=== PATIENT | female | born 1985 | race African-American/Black ===

== ENCOUNTER 2016-11-06 13:26 | Emergency (ER) | payer SELFPAY ==
[~2016-11-06] VITALS: Ht 149.9 cm; Wt 59.1 kg
[2016-11-06 13:27] VITALS: BP 129/96; PULSE 75; TEMP 100
[2016-11-06] MEDS ORDERED: PEN-VEE K500 MG PO (14:02)
[2016-11-06] MEDS ORDERED: NORCO 325 MG-51 TAB PO (14:02)
== END 2016-11-06 14:51 | disposition home or self-care (01) ==
LOC: COL.ER 13:26
DX: K02.9 Dental caries, unspecified (principal); J45.909 Unspecified asthma, uncomplicated; E11.9 Type 2 diabetes mellitus without complications; F17.210 Nicotine dependence, cigarettes, uncomplicated; Z79.84 Long term (current) use of oral hypoglycemic drugs

== ENCOUNTER 2017-03-29 13:23 | Emergency (ER) | payer SELFPAY ==
[~2017-03-29] VITALS: Ht 149.9 cm; Wt 55.9 kg
[~2017-03-29 13:23] MED LIST: NORCO 325 MG-51 TAB PO; PEN-VEE K500 MG PO
[2017-03-29 13:30] VITALS: BP 108/82; TEMP 98.5
[2017-03-29] MEDS ORDERED: PEN-VEE K500 MG PO (14:49)
[2017-03-29] MEDS ORDERED: NORCO 325 MG-51 TAB PO (14:49)
[2017-03-29 14:53] VITALS: PULSE 71
== END 2017-03-29 14:54 | disposition home or self-care (01) ==
LOC: COL.ER 13:23
DX: K02.9 Dental caries, unspecified (principal); R68.84 Jaw pain

== ENCOUNTER 2017-10-17 01:59 | Emergency (ER) | payer SELFPAY ==
[~2017-10-17] VITALS: Ht 149.9 cm; Wt 61.4 kg
[2017-10-17 01:59] VITALS: TEMP 97.3
[2017-10-17] MEDS ORDERED: ZYRTEC5 MG PO (02:04)
[2017-10-17 03:38] LABS: ALBUMIN 3.5 gm/dL (3.5-5.0); BILIRUBIN,TOTAL 0.4 mg/dL (0.0-1.0); CALCIUM 8.2 mg/dL (8.4-10.2); CREATININE, serum 0.86 mg/dL (0.52-1.25); TOTAL PROTEIN 7.2 gm/dL (6.4-8.2)
[2017-10-17 03:46] LABS: POTASSIUM 3.6 mmol/L (3.4-5.0)
[2017-10-17 05:26] LABS: BASO % 0.2 % (0.0-2.0); EOS # 0.1 (0.0-0.7); EOS % 0.5 % (0-4.0); GRAN # 8.5 (1.4-6.5); GRAN % 74.9 % (42.2-75.2); HEMOGLOBIN 11.6 g/dl (12.5-16.0); LYMPH # 2.4 (1.2-3.4); LYMPH % 21.3 % (20.0-51.0); MEAN CELL VOLUME 85 fl (80.0-100.0); MEAN CORPUSCULAR HEMOGLOBIN 29 pg (27.0-31.0); MEAN CORPUSCULAR HGB CONC 34 g/dl (33.0-37.0); MEAN PLATELET VOLUME 8.8 fl (7.4-10.4); MONO # 0.3 (0.1-0.6); MONO % 2.8 % (1.7-9.3); PLATELET COUNT 267 K/mm3 (130-400); RED BLOOD COUNT 3.96 M/mm3 (4.10-5.30); REDCELL DISTRIBUTION WIDTH-CV 12.8 % (11.5-14.5)
[2017-10-17 05:30] LABS: HEMATOCRIT 33.7 % (37.0-47.0)
[2017-10-17 05:31] VITALS: BP 102/73
[2017-10-17 05:39] LABS: CALCIUM 8.2 mg/dL (8.4-10.2); CREATININE, serum 0.76 mg/dL (0.52-1.25); POTASSIUM 4.1 mmol/L (3.4-5.0)
[2017-10-17 05:45] VITALS: PULSE 86
== END 2017-10-17 06:11 | disposition home or self-care (01) ==
LOC: COL.ER 01:59
PROVIDERS: Emergency Medicine
DX: F10.129 Alcohol abuse with intoxication, unspecified (principal); R55 Syncope and collapse; E11.9 Type 2 diabetes mellitus without complications; F17.210 Nicotine dependence, cigarettes, uncomplicated; Z90.721 Acquired absence of ovaries, unilateral; Y90.1 Blood alcohol level of 20-39 mg/100 ml
CPT/HCPCS: J7030

== ENCOUNTER 2018-01-21 03:51 | Inpatient (IN) | payer SELFPAY ==
[2018-01-21] VITALS (11 sets, daily range): BP systolic 95–131; BP diastolic 59–90; PULSE 86–118; TEMP 98.6–100.5; O2SAT 97–98
[~2018-01-21] VITALS: Ht 162.6 cm; Wt 65.0 kg
[~2018-01-21 03:51] MED LIST changes: +ZYRTEC5 MG PO
[2018-01-21 04:21] LABS: BASO % 0.2 % (0.0-2.0); EOS # 0.1 (0.0-0.7); EOS % 0.5 % (0-4.0); GRAN % 75.7 % (42.2-75.2); HEMOGLOBIN 11.5 g/dl (12.5-16.0); LYMPH # 2.9 (1.2-3.4); LYMPH % 19.8 % (20.0-51.0); MEAN CELL VOLUME 88 fl (80.0-100.0); MEAN CORPUSCULAR HEMOGLOBIN 29 pg (27.0-31.0); MEAN CORPUSCULAR HGB CONC 33 g/dl (33.0-37.0); MEAN PLATELET VOLUME 8.9 fl (7.4-10.4); MONO # 0.5 (0.1-0.6); MONO % 3.5 % (1.7-9.3); PLATELET COUNT 321 K/mm3 (130-400); RED BLOOD COUNT 3.93 M/mm3 (4.10-5.30); REDCELL DISTRIBUTION WIDTH-CV 13.3 % (11.5-14.5)
[2018-01-21 04:22] LABS: HEMATOCRIT 34.4 % (37.0-47.0)
[2018-01-21 04:30] LABS: ALANINE AMINOTRANSFERASE 27 U/L (9-52); ALKALINE PHOSPHATASE 60 U/L (50-136); ANION GAP 16 mmol/L (7-16); AST,SGOT 24 U/L (15-37); BILIRUBIN,TOTAL 0.7 mg/dL (0.0-1.0); BLOOD UREA NITROGEN 8 mg/dL (7-17); CARBON DIOXIDE 20 mmol/L (22-30); CHLORIDE 105 mmol/L (98-107); CREATININE, serum 0.86 mg/dL (0.52-1.25); GLUCOSE 134 mg/dL (74-106); SODIUM 141 mmol/L (137-145); TOTAL PROTEIN 7.1 gm/dL (6.4-8.2)
[2018-01-21 04:31] LABS: ACETAMINOPHEN < 10 ug/mL (10-30); ALCOHOL(ethanol),MEDICAL < 10 mg/dL; SALICYLATE < 1.0 mg/dL
[2018-01-21 04:32] LABS: POTASSIUM 2.8 mmol/L (3.4-5.0)
[2018-01-21 04:33] LABS: COLLECTION METHOD CATHETER
[2018-01-21 04:34] LABS: MAGNESIUM 2.1 mg/dL (1.6-2.3)
[2018-01-21 04:42] LABS: MUCOUS Present /lpf; PH 5 (5-8); SQUAMOUS EPITHELIAL 20-50 /hpf; URINE APPEARANCE Turbid; URINE BACTERIA Moderate /hpf; URINE BILIRUBIN Negative (NEGATIVE); URINE BLOOD Negative (NEGATIVE); URINE COLOR Yellow; URINE GLUCOSE Negative (NEGATIVE); URINE KETONE 1+ (NEGATIVE); URINE LEUKOCYTE ESTERASE 3+ (NEGATIVE); URINE NITRATE Negative (NEGATIVE); URINE PROTEIN(semi-quant) 1+ (NEGATIVE); URINE RBC 20-50 /hpf; URINE UROBILINOGEN Negative (NEGATIVE)
[2018-01-21 04:46] LABS: TRICYCLIC ANTIDEPRESS URINE POSITIVE
[2018-01-21 05:25] LABS: COLLECTION METHOD CATHETER
[2018-01-21 05:41] LABS: MUCOUS Present /lpf; PH 5 (5-8); SQUAMOUS EPITHELIAL 0-2 /hpf; URINE APPEARANCE Hazy; URINE BACTERIA Moderate /hpf; URINE BILIRUBIN Negative (NEGATIVE); URINE BLOOD Negative (NEGATIVE); URINE COLOR Yellow; URINE GLUCOSE Negative (NEGATIVE); URINE KETONE 1+ (NEGATIVE); URINE LEUKOCYTE ESTERASE 3+ (NEGATIVE); URINE NITRATE Negative (NEGATIVE); URINE PROTEIN(semi-quant) 1+ (NEGATIVE); URINE UROBILINOGEN Negative (NEGATIVE)
[2018-01-21 08:21] LABS: ARTERIAL BLD GAS O2 SATURATION 92.6 % (92-100); ARTERIAL BLD GAS TCO2 CT 22.2; ARTERIAL BLOOD GAS BASE EXCESS -3.4 (-2-2); ARTERIAL BLOOD GAS PCO2 35.9 mmHg (35-45); ARTERIAL BLOOD GAS PO2 69.2 mmHg (80-100); ARTERIAL BLOOD GAS pH 7.39 (7.35-7.45)
[2018-01-21 12:14] LABS: ARTERIAL BLD GAS O2 SATURATION 98.1 % (92-100); ARTERIAL BLD GAS TCO2 CT 20.3; ARTERIAL BLOOD GAS BASE EXCESS -3.8 (-2-2); ARTERIAL BLOOD GAS HCO3 19.4 meq/L (22-26); ARTERIAL BLOOD GAS PCO2 29.3 mmHg (35-45); ARTERIAL BLOOD GAS pH 7.44 (7.35-7.45)
[2018-01-21 12:15] LABS: ARTERIAL BLOOD GAS PO2 146.3 mmHg (80-100)
[2018-01-22] VITALS (7 sets, daily range): BP systolic 108–132; BP diastolic 80–883; PULSE 78–110; TEMP 97.2–98.8
[2018-01-22 05:14] LABS: BASO % 0.2 % (0.0-2.0); EOS # 0.1 (0.0-0.7); EOS % 0.8 % (0-4.0); GRAN # 10.9 (1.4-6.5); GRAN % 88.3 % (42.2-75.2); HEMATOCRIT 29.6 % (37.0-47.0); HEMOGLOBIN 10.1 g/dl (12.5-16.0); LYMPH % 7.7 % (20.0-51.0); MEAN CELL VOLUME 86 fl (80.0-100.0); MEAN CORPUSCULAR HEMOGLOBIN 29 pg (27.0-31.0); MEAN CORPUSCULAR HGB CONC 34 g/dl (33.0-37.0); MEAN PLATELET VOLUME 8.7 fl (7.4-10.4); MONO # 0.3 (0.1-0.6); MONO % 2.4 % (1.7-9.3); PLATELET COUNT 268 K/mm3 (130-400); RED BLOOD COUNT 3.43 M/mm3 (4.10-5.30); REDCELL DISTRIBUTION WIDTH-CV 13.2 % (11.5-14.5)
[2018-01-22 05:21] LABS: INR 1.4 (0.8-3.0); PROTHROMBIN TIME 15.6 SECONDS (9.7-12.8)
[2018-01-22 05:34] LABS: ALBUMIN 3.3 gm/dL (3.5-5.0); BILIRUBIN,TOTAL 0.8 mg/dL (0.0-1.0); CALCIUM 8.3 mg/dL (8.4-10.2); CREATININE, serum 0.8 mg/dL (0.52-1.25); POTASSIUM 3.7 mmol/L (3.4-5.0); TOTAL PROTEIN 6.3 gm/dL (6.4-8.2)
[2018-01-22 05:34] LABS: ARTERIAL BLD GAS TCO2 CT 20.7; ARTERIAL BLOOD GAS BASE EXCESS -3.3 (-2-2); ARTERIAL BLOOD GAS HCO3 19.8 meq/L (22-26); ARTERIAL BLOOD GAS PCO2 29.3 mmHg (35-45); ARTERIAL BLOOD GAS PO2 100.4 mmHg (80-100); ARTERIAL BLOOD GAS pH 7.45 (7.35-7.45)
[2018-01-23] VITALS (8 sets, daily range): BP systolic 87–126; BP diastolic 62–87; PULSE 73–97; TEMP 98.1–98.8
[2018-01-23 05:13] LABS: ARTERIAL BLD GAS TCO2 CT 22.5; ARTERIAL BLOOD GAS BASE EXCESS -0.3 (-2-2); ARTERIAL BLOOD GAS HCO3 21.6 meq/L (22-26); ARTERIAL BLOOD GAS PCO2 27.1 mmHg (35-45); ARTERIAL BLOOD GAS pH 7.52 (7.35-7.45)
[2018-01-23 05:14] LABS: ARTERIAL BLOOD GAS PO2 130.9 mmHg (80-100)
[2018-01-23 05:33] LABS: BASO % 0.2 % (0.0-2.0); EOS # 0.2 (0.0-0.7); EOS % 1.9 % (0-4.0); GRAN # 10.4 (1.4-6.5); GRAN % 81.6 % (42.2-75.2); LYMPH # 1.5 (1.2-3.4); MEAN CELL VOLUME 85 fl (80.0-100.0); MEAN CORPUSCULAR HEMOGLOBIN 30 pg (27.0-31.0); MEAN CORPUSCULAR HGB CONC 35 g/dl (33.0-37.0); MEAN PLATELET VOLUME 8.9 fl (7.4-10.4); MONO # 0.5 (0.1-0.6); MONO % 3.8 % (1.7-9.3); PLATELET COUNT 240 K/mm3 (130-400); RED BLOOD COUNT 3.33 M/mm3 (4.10-5.30); REDCELL DISTRIBUTION WIDTH-CV 13.1 % (11.5-14.5)
[2018-01-23 05:34] LABS: HEMATOCRIT 28.4 % (37.0-47.0)
[2018-01-23 05:43] LABS: ALBUMIN 3.3 gm/dL (3.5-5.0); BILIRUBIN,TOTAL 0.4 mg/dL (0.0-1.0); CALCIUM 8.3 mg/dL (8.4-10.2); CREATININE, serum 0.8 mg/dL (0.52-1.25); POTASSIUM 3.6 mmol/L (3.4-5.0); TOTAL PROTEIN 6.7 gm/dL (6.4-8.2)
[2018-01-23 11:55] LABS: TRICYCLIC ANTIDEPRESS URINE POSITIVE
[2018-01-24] VITALS (9 sets, daily range): BP systolic 101–119; BP diastolic 66–82; PULSE 66–93; TEMP 97.8–99.1
[2018-01-24 05:04] LABS: ARTERIAL BLOOD GAS pH 7.51 (7.35-7.45)
[2018-01-24 05:05] LABS: ARTERIAL BLOOD GAS BASE EXCESS -1.1 (-2-2)
[2018-01-24 06:24] LABS: BASO % 0.2 % (0.0-2.0); EOS # 0.4 (0.0-0.7); EOS % 3.3 % (0-4.0); GRAN # 9.8 (1.4-6.5); GRAN % 80.3 % (42.2-75.2); LYMPH # 1.4 (1.2-3.4); LYMPH % 11.6 % (20.0-51.0); MEAN CELL VOLUME 86 fl (80.0-100.0); MEAN CORPUSCULAR HGB CONC 34 g/dl (33.0-37.0); MEAN PLATELET VOLUME 9.8 fl (7.4-10.4); MONO # 0.5 (0.1-0.6); MONO % 4.1 % (1.7-9.3); PLATELET COUNT 264 K/mm3 (130-400); RED BLOOD COUNT 3.22 M/mm3 (4.10-5.30); REDCELL DISTRIBUTION WIDTH-CV 13.1 % (11.5-14.5)
[2018-01-24 06:30] LABS: HEMATOCRIT 27.6 % (37.0-47.0); HEMOGLOBIN 9.5 g/dl (12.5-16.0); MEAN CORPUSCULAR HEMOGLOBIN 30 pg (27.0-31.0)
[2018-01-24 06:41] LABS: ALBUMIN 3.3 gm/dL (3.5-5.0); CALCIUM 8.5 mg/dL (8.4-10.2); CREATININE, serum 0.74 mg/dL (0.52-1.25); PHOSPHOROUS 3.3 mg/dL (2.5-4.5); POTASSIUM 3.8 mmol/L (3.4-5.0)
[2018-01-25] VITALS: BP 100/68; PULSE 90; TEMP 98.7
[2018-01-25 04:00] VITALS: BP 107/72; PULSE 87; TEMP 99.4
[2018-01-25 06:03] LABS: BASO % 0.2 % (0.0-2.0); EOS # 0.5 (0.0-0.7); EOS % 5.3 % (0-4.0); GRAN # 6.5 (1.4-6.5); LYMPH # 1.8 (1.2-3.4); LYMPH % 19.1 % (20.0-51.0); MEAN CELL VOLUME 86 fl (80.0-100.0); MEAN CORPUSCULAR HGB CONC 34 g/dl (33.0-37.0); MONO # 0.7 (0.1-0.6); MONO % 7.1 % (1.7-9.3); PLATELET COUNT 280 K/mm3 (130-400); RED BLOOD COUNT 3.34 M/mm3 (4.10-5.30); REDCELL DISTRIBUTION WIDTH-CV 12.9 % (11.5-14.5)
[2018-01-25 06:04] LABS: HEMATOCRIT 28.8 % (37.0-47.0); HEMOGLOBIN 9.7 g/dl (12.5-16.0); MEAN CORPUSCULAR HEMOGLOBIN 29 pg (27.0-31.0)
[2018-01-25 06:15] LABS: CALCIUM 8.8 mg/dL (8.4-10.2); CREATININE, serum 0.74 mg/dL (0.52-1.25); POTASSIUM 3.7 mmol/L (3.4-5.0)
[2018-01-25 07:56] VITALS: BP 96/66; PULSE 80; TEMP 98.7
[2018-01-25] MEDS ORDERED: CLEOCIN HCL300 MG PO (10:15)
== END 2018-01-25 10:50 | DRG 917 ==
LOC: COL.ER 03:51 → ICU 05:21
PROVIDERS: Anesthesiology Critical Care Medicine; Emergency Medicine; Family Medicine; Internal Medicine; Internal Medicine Critical Care Medicine; Internal Medicine Pulmonary Disease
PROC: 0BH17EZ Insertion of Endotracheal Airway into Trachea, Via Natural or Artificial Opening (ICD-10-PCS; principal; 2018-01-21)
PROC: 5A1945Z Respiratory Ventilation, 24-96 Consecutive Hours (ICD-10-PCS; 2018-01-21)
DX: T43.622A Poisoning by amphetamines, intentional self-harm, initial encounter (principal); J69.0 Pneumonitis due to inhalation of food and vomit; J96.01 Acute respiratory failure with hypoxia; E44.0 Moderate protein-calorie malnutrition; N39.0 Urinary tract infection, site not specified; M62.82 Rhabdomyolysis; T43.592A Poisoning by other antipsychotics and neuroleptics, intentional self-harm, initial encounter; T40.7X2A Poisoning by cannabis (derivatives), intentional self-harm, initial encounter; T40.5X2A Poisoning by cocaine, intentional self-harm, initial encounter; E11.649 Type 2 diabetes mellitus with hypoglycemia without coma; F31.9 Bipolar disorder, unspecified; F41.0 Panic disorder [episodic paroxysmal anxiety]; R40.2432 Glasgow coma scale score 3-8, at arrival to emergency department; Z87.891 Personal history of nicotine dependence
CPT/HCPCS: 99222; 99223-AI; 99232-AI; 99239; C1751; J0295; J0330; J0692; J0696; J1650; J2060; J2250; J2405; J2704; J3370; J3480; J7030; J7050

== ENCOUNTER 2018-02-12 18:25 | Emergency (ER) | payer SELFPAY ==
[~2018-02-12] VITALS: Ht 149.9 cm; Wt 54.5 kg
[~2018-02-12 18:25] MED LIST changes: +CLEOCIN HCL300 MG PO
[2018-02-12 18:27] VITALS: BP 130/80; TEMP 98.8
[2018-02-12 20:34] VITALS: PULSE 90
== END 2018-02-12 20:34 | disposition home or self-care (01) ==
LOC: COL.ER 18:25
DX: S69.91XA Unspecified injury of right wrist, hand and finger(s), initial encounter (principal); S52.601A Unspecified fracture of lower end of right ulna, initial encounter for closed fracture; F17.210 Nicotine dependence, cigarettes, uncomplicated; W18.30XA Fall on same level, unspecified, initial encounter; Y93.67 Activity, basketball

== ENCOUNTER 2018-05-02 02:26 | Emergency (ER) | payer MEDICAID ==
[~2018-05-02] VITALS: Ht 149.9 cm; Wt 50.0 kg
[2018-05-02 02:31] VITALS: BP 132/93; PULSE 109; TEMP 98.2
== END 2018-05-02 03:06 | disposition left against medical advice (07) ==
LOC: COL.ER 02:26
DX: R45.851 Suicidal ideations (principal)

== ENCOUNTER 2018-11-17 10:32 | Emergency (ER) | payer MEDICAID ==
[~2018-11-17] VITALS: Ht 149.9 cm; Wt 59.0 kg
[2018-11-17 10:38] VITALS: BP 134/93; PULSE 91; TEMP 99.6
[2018-11-17] MEDS ORDERED: AMOXICILLIN 8751 TAB PO (11:00)
== END 2018-11-17 11:09 | disposition home or self-care (01) ==
LOC: COL.ER 10:32
DX: J20.9 Acute bronchitis, unspecified (principal); J06.9 Acute upper respiratory infection, unspecified; K02.9 Dental caries, unspecified; L08.9 Local infection of the skin and subcutaneous tissue, unspecified; F31.9 Bipolar disorder, unspecified; E11.9 Type 2 diabetes mellitus without complications; Z98.51 Tubal ligation status; F17.210 Nicotine dependence, cigarettes, uncomplicated

== ENCOUNTER 2019-02-16 16:02 | Emergency (ER) | payer MEDICAID ==
[~2019-02-16] VITALS: Ht 149.9 cm; Wt 63.6 kg
[~2019-02-16 16:02] MED LIST changes: +AMOXICILLIN 8751 TAB PO
[2019-02-16 16:22] VITALS: BP 118/75; TEMP 98.9
[2019-02-16] MEDS ORDERED: LATUDA20 MG (16:36)
[2019-02-16 17:35] VITALS: PULSE 93
== END 2019-02-16 17:35 | disposition home or self-care (01) ==
LOC: COL.ER 16:02
DX: J06.9 Acute upper respiratory infection, unspecified (principal); F17.210 Nicotine dependence, cigarettes, uncomplicated
CPT/HCPCS: J1100